=== PATIENT | female | born 1945 | race Caucasian/White ===

== ENCOUNTER → 2017-09-09 16:20 | Outpatient (CLI) | payer MEDICARE, OTHER, SELFPAY ==
[2017-09-09 17:26] LABS: BUN Creatinine Ratio 31.7 (6-22); Blood Urea Nitrogen 19 mg/dL (7-17); Calcium 9.6 mg/dL (8.4-10.2); Carbon Dioxide 24 mmol/L (22-32); Chloride 104 mmol/L (98-107); Estimated Glomerular Filt Rate > 60.0 mL/min (>60); Glucose 95 mg/dL (80-110); HEMOLYSIS < 15 (0-50); Sodium 141 mmol/L (137-145)
== END ==
PROVIDERS: PCP Physician Assistant; Visit Provider Physician Assistant
DX: I10 Essential (primary) hypertension (principal)
CPT/HCPCS: 36415; 80048

== ENCOUNTER → 2017-09-14 14:37 | Outpatient (CLI) | payer MEDICARE, OTHER, SELFPAY ==
[2017-09-14 15:42] LABS: Erythrocyte Sedimentation Rate 8 MM/HR (0-20)
[2017-09-16 12:41] LABS: CCP Antibody (IgG) < 16 Units (< 20)
== END ==
PROVIDERS: PCP Physician Assistant; Visit Provider Physician Assistant
DX: M25.50 Pain in unspecified joint (principal); M25.40 Effusion, unspecified joint
CPT/HCPCS: 36415; 83516; 85651

== ENCOUNTER → 2017-12-07 09:30 | Outpatient (CLI) | payer MEDICARE, OTHER, SELFPAY ==
--- NOTE | 2017-12-07 09:45 | DI.MG.S_ITS ---
BILATERAL DIGITAL SCREENING MAMMOGRAM 3D/2D WITH CAD: 12/07/2017 CLINICAL: Routine screening. Family history of breast cancer. Comparison is made to exams dated: 12/01/2016 mammogram, 11/29/2015 mammogram, and 11/27/2014 mammogram - [facility]. The tissue of both breasts is heterogeneously dense. This may lower the sensitivity of mammography. Current study was also evaluated with a Computer Aided Detection (CAD) system. No significant masses, calcifications, or other findings are seen in either breast. There has been no significant interval change. IMPRESSION: NEGATIVE There is no mammographic evidence of malignancy. A 1 year screening mammogram is recommended.(12/08/2018) This exam was interpreted at Station ID: [id number]. NOTE: For mammograms, a report in lay terms will be sent to the patient. Approximately 15% of breast malignancies will not be visualized mammographically. In the management of a palpable breast mass, a negative mammogram must not discourage biopsy of a clinically suspicious lesion. Electronically Signed By: Mason zavaleta/sophia:12/07/2017 15:51:23 letter sent: Normal Exam ACR BI-RADS Category 1: Negative 3341F
== END ==
PROVIDERS: PCP Physician Assistant; Visit Provider Physician Assistant
DX: Z12.31 Encounter for screening mammogram for malignant neoplasm of breast (principal)
CPT/HCPCS: 77063; 77067

== ENCOUNTER → 2018-03-09 09:38 | Outpatient (CLI) | payer MEDICARE, OTHER, SELFPAY ==
--- NOTE | 2018-03-09 09:43 | DI.RAD.S_ITS ---
PROCEDURE: XR CERVICAL SPINE 2V OR 3V INDICATIONS: Right sided neck pain; suspect osteoarthritis TECHNIQUE: 3 view(s) of the cervical spine were acquired. COMPARISON: None. FINDINGS: Bones: No fractures or dislocations to the T1 level. The lateral masses of C1 appear intact on the odontoid view. No suspicious bony lesions. Soft tissues: No prevertebral soft tissue swelling. IMPRESSION: Moderate degenerative disc disease over the middle and lower thirds of the cervical spine best seen at C5-6, no trauma found, and no subluxation associated. Dictated by: Miguel Guardado M.D. on 03/09/2018 at 10:35 Approved by: Miguel Guardado M.D. on 03/09/2018 at 10:36
== END ==
PROVIDERS: PCP Physician Assistant; Visit Provider Physician Assistant
DX: M50.322 Other cervical disc degeneration at C5-C6 level (principal)
CPT/HCPCS: 72040

== ENCOUNTER → 2018-04-02 08:31 | Outpatient (CLI) | payer MEDICARE, OTHER, SELFPAY ==
[2018-04-02 08:55] LABS: Cholesterol 167 mg/dL (140-199); HDL Cholesterol 47 mg/dL (40-60); LDL Cholesterol Calculated 100 mg/dL (<100); Triglycerides 99 mg/dL (35-150)
== END ==
PROVIDERS: PCP Physician Assistant; Visit Provider Physician Assistant
DX: E78.2 Mixed hyperlipidemia (principal)
CPT/HCPCS: 36415; 80061

== ENCOUNTER → 2018-08-04 10:11 | Outpatient (CLI) | payer MEDICARE, OTHER, SELFPAY ==
[2018-08-04 11:52] LABS: Thyroid Stimulating Hormone 1.11 uIU/mL (0.47-4.68)
== END ==
PROVIDERS: PCP Physician Assistant; Visit Provider Physician Assistant
DX: E03.9 Hypothyroidism, unspecified (principal)
CPT/HCPCS: 36415; 84443

== ENCOUNTER → 2018-12-14 11:22 | Outpatient (CLI) | payer MEDICARE, OTHER, SELFPAY ==
--- NOTE | 2018-12-14 | DI.MG.S_ITS ---
BILATERAL DIGITAL SCREENING MAMMOGRAM 3D/2D WITH CAD: 12/14/2018 CLINICAL: Routine screening. Family history of breast cancer. Comparison is made to exams dated: 12/07/2017 mammogram, 12/01/2016 mammogram, and 11/29/2015 mammogram - [facility]. The tissue of both breasts is heterogeneously dense. This may lower the sensitivity of mammography. Current study was also evaluated with a Computer Aided Detection (CAD) system. No significant masses, calcifications, or other findings are seen in either breast. There has been no significant interval change. IMPRESSION: NEGATIVE There is no mammographic evidence of malignancy. A 1 year screening mammogram is recommended. This exam was interpreted at Station ID: [id number]. NOTE: For mammograms, a report in lay terms will be sent to the patient. Approximately 15% of breast malignancies will not be visualized mammographically. In the management of a palpable breast mass, a negative mammogram must not discourage biopsy of a clinically suspicious lesion. Electronically Signed By: Mason zavaleta/sophia:12/14/2018 11:56:54 letter sent: Normal Exam ACR BI-RADS Category 1: Negative 3341F
== END ==
PROVIDERS: PCP Physician Assistant; Visit Provider Physician Assistant
DX: Z12.31 Encounter for screening mammogram for malignant neoplasm of breast (principal); Z80.3 Family history of malignant neoplasm of breast
CPT/HCPCS: 77063; 77067

== ENCOUNTER → 2019-03-02 07:03 | Outpatient (CLI) | payer MEDICARE, OTHER, SELFPAY ==
[2019-03-02 08:33] LABS: Alanine Aminotransferase 23 IU/L (<35); Albumin 4.4 g/dL (3.5-5.0); Albumin Globulin Ratio 1.6 (1.0-2.8); Alkaline Phosphatase 66 U/L (38-126); Aspartate Aminotransferase 25 IU/L (14-36); BUN Creatinine Ratio 18.6 (6-22); Bilirubin Total 0.5 mg/dL (0.2-1.3); Blood Urea Nitrogen 13 mg/dL (7-17); Calcium 9.4 mg/dL (8.4-10.2); Carbon Dioxide 29 mmol/L (22-32); Chloride 104 mmol/L (98-107); Cholesterol 174 mg/dL (140-199); Estimated Glomerular Filt Rate > 60.0 mL/min (>60); Globulin 2.7 g/dL (1.7-4.1); Glucose 98 mg/dL (80-110); HDL Cholesterol 40 mg/dL (40-60); HEMOLYSIS < 15 (0-50); LDL Cholesterol Calculated 103 mg/dL (<100); Potassium 4.5 mmol/L (3.4-5.1); Sodium 140 mmol/L (137-145); Total Protein 7.1 g/dL (6.3-8.2); Triglycerides 156 mg/dL (35-150)
[2019-03-02 09:03] LABS: Thyroid Stimulating Hormone 4.75 uIU/mL (0.47-4.68)
[2019-03-02 09:45] LABS: Microalbumi Creatinin Ratio Ur 4.9 ug/mg CR (<30); Microalbumin Urine Random 0.7 mg/dL (0-1.6)
== END ==
PROVIDERS: PCP Physician Assistant; Visit Provider Physician Assistant
DX: E03.9 Hypothyroidism, unspecified (principal); E78.5 Hyperlipidemia, unspecified; I10 Essential (primary) hypertension
CPT/HCPCS: 36415; 80053; 80061; 82043; 82570; 84443

== ENCOUNTER → 2019-04-25 07:42 | Outpatient (CLI) | payer MEDICARE, OTHER, SELFPAY ==
[2019-04-25 09:04] LABS: Cholesterol 186 mg/dL (140-199); HDL Cholesterol 45 mg/dL (40-60); LDL Cholesterol Calculated 112 mg/dL (<100); Triglycerides 147 mg/dL (35-150)
[2019-04-25 09:36] LABS: Thyroid Stimulating Hormone 0.39 uIU/mL (0.47-4.68)
== END ==
PROVIDERS: PCP Nurse Practitioner Family; Referring Provider Physician Assistant; Visit Provider Physician Assistant
DX: Z51.81 Encounter for therapeutic drug level monitoring (principal); E03.9 Hypothyroidism, unspecified; E78.2 Mixed hyperlipidemia
CPT/HCPCS: 36415; 80061; 84443

== ENCOUNTER 2019-05-30 07:59 | Day surgery (SDC) | payer MEDICARE, OTHER, SELFPAY ==
--- NOTE | 2019-05-30 | PATH_ITS ---
[facility] Accession Number: [id number] . 01 Material submitted: . PART A: gastrointestinal site - RANDOM GASTRIC BIOPSIES PART B: esophagus, E-G Junction - GE JUNCTION BIOPSIES . 02 Diagnosis: A. Stomach, Random Biopsies: Antral mucosa with mild chronic gastritis. Negative for Helicobacter by immunohistochemistry. Negative for intestinal metaplasia. Negative for dysplasia and malignancy. . B. Gastroesophageal Junction, Biopsies: Squamocolumnar junctional mucosa with no significant diagnostic abnormality. Negative for intestinal metaplasia by Alcian blue stain. Negative for dysplasia and malignancy. [facility] 06/01/2019 1341 Local . 02 Electronically signed: . Colette Rockwell MD, Pathologist NPI- [id number] . 01 Gross description: . Part A: RANDOM GASTRIC BIOPSIES: Received in formalin are 2 fragment(s) of torres, soft tissue measuring 0.2 x 0.2 x 0.2 cm to 0.3 x 0.2 x 0.2 cm submitted entirely in 1 cassette(s) Part B: GE JUNCTION BIOPSIES: Received in formalin is 1 fragment(s) of torres, soft tissue measuring 0.1 x 0.1 x 0.1 cm submitted entirely in 1 cassette(s) /[facility] 05/30/2019 2013 Local . 02 Microscopic: . A. An immunohistochemical stain was performed to evaluate for Helicobacter organisms and is negative. The control stain showed appropriate reactivity. . B. An AB/PAS stain was performed to evaluate for intestinal metaplasia and fungal organisms, respectively, and are both negative. The control stain showed appropriate reactivity. . * This test was developed and its performance characteristics determined by [employer] It has not been cleared or approved by the U.S. Food and Drug Administration. The FDA has determined that such clearance or approval is not necessary. This test is used for clinical purposes. It should not be regarded as investigational or for research. . . . 02 Pathologist provided ICD-10: K21.0 . 02 CPT . 950106, 638290, K81130, 916761 Performed at: 01 [facility] [address] [id number] MD Mason Stephen MD Phone: [phone] Performed at: 02 [facility] [address] [place] [id number] MD Colette Rockwell MD Phone: [phone]
[2019-05-30 08:52] VITALS: BP 129/71; PULSE 77; RESP 16; TEMP 36.7; O2SAT 99; BMI 26.1
--- NOTE | 2019-05-30 09:02 | PM.PREOP ---
Pre-operative Note Interval Note History & Physical reviewed/Exam performed by Physician: Yes Changes to H&P: No ASA Class (for procedural sedation): II
[2019-05-30] MEDS: LACTATED RINGERS 1,000 ML 200 ML IV (09:08)
[2019-05-30] MEDS: LIDOCAINE 4% SOLN 50 ML 20 ML TOP (10:06)
[2019-05-30] MEDS: fentaNYL 250 MCG/5 ML INJ IV (10:11)
[2019-05-30] MEDS: MIDAZOLAM 5 MG/5 ML VIAL IV (10:11)
--- NOTE | 2019-05-30 10:21 | PM.OP.ENDO ---
Operative Date/Time/Diagnoses Date of procedure: 05/30/19 Time of procedure: 10:21 Pre-op diagnosis: dysphagia Post-op diagnosis: other (gastritis) Procedure & Clinicians Study performed: Esophagoduodenoscopy Same procedure as scheduled: Yes Indications: New onset dysphagia Surgeon: Librado Wyatt Procedure Notes SCOAP/Timeout: Performed Procedure in detail: Patient placed in left lateral decubitus position. Time out was performed. Procedural sedation was administered with Versed and Fentanyl. A bite block was placed. the scope was inserted into the mouth and advanced through the esophagus and into the stomach. The pylorus was intubated and the duodenum was normal. The scope was retroflexed within the stomach and there was a moderate size hiatal hernia. Stomach was notable for gastritis particularly of the antrum. Several random biopsies of the cyst distal stomach were taken with forceps. Hemostasis was observed. The scope was withdrawn into the esophagus the Z line was seen at 32 cm from the incisions. There was no vidales's esophagitis or masses or strictures. 4 random biopsies of the GE junction were taken with forceps. Stomach was desufflated and scope removed. Patient tolerated procedure well. Sedation minutes: 10 Findings: gastritis and hiatal hernia Specimen(s): other (1. Random gastric biopsy 2. GE junction) Complications: none Impression: Gastritis, hiatal hernia Post-procedure Recommendations: Start medication(s) (Omeprazole) Disposition: same day surgery
[2019-05-30 10:28] VITALS: BP 127/70; PULSE 67; RESP 19; TEMP 36.2; O2SAT 95
[2019-05-30 10:34] VITALS: BP 114/63; PULSE 66; RESP 15; O2SAT 96
[2019-05-30 10:39] VITALS: BP 112/57; PULSE 64; RESP 14; O2SAT 92
[2019-05-30 10:43] VITALS: BP 123/66; PULSE 70; RESP 16; O2SAT 92
[2019-05-30 11:09] VITALS: BP 129/81; PULSE 68; RESP 16; TEMP 36.3; O2SAT 98
== END 2019-05-30 11:10 | disposition home or self-care (01) ==
PROVIDERS: PCP Nurse Practitioner Family; Referring Provider Surgery; Visit Provider Surgery
PROC: 0DJ08ZZ Inspection of Upper Intestinal Tract, Via Natural or Artificial Opening Endoscopic (ICD-10-PCS; CPT 43235; principal; 2019-05-30 09:15)
DX: K29.50 Unspecified chronic gastritis without bleeding (principal); R13.10 Dysphagia, unspecified; K21.9 Gastro-esophageal reflux disease without esophagitis; M85.80 Other specified disorders of bone density and structure, unspecified site; K44.9 Diaphragmatic hernia without obstruction or gangrene
CPT/HCPCS: 43239; 99152; J2250; J3010

== ENCOUNTER → 2019-07-08 09:36 | Outpatient (CLI) | payer MEDICARE, OTHER, SELFPAY ==
[2019-07-08 11:16] LABS: Cholesterol 140 mg/dL (140-199); HDL Cholesterol 35 mg/dL (40-60); LDL Cholesterol Calculated 89 mg/dL (<100); Triglycerides 82 mg/dL (35-150)
[2019-07-08 11:45] LABS: Thyroid Stimulating Hormone 0.04 uIU/mL (0.47-4.68)
== END ==
PROVIDERS: PCP Nurse Practitioner Family; Referring Provider Nurse Practitioner Family; Visit Provider Nurse Practitioner Family
DX: E03.9 Hypothyroidism, unspecified (principal); E78.2 Mixed hyperlipidemia
CPT/HCPCS: 36415; 80061; 84443

== ENCOUNTER → 2019-09-05 11:40 | Outpatient (CLI) | payer MEDICARE, OTHER, SELFPAY ==
[2019-09-05 13:11] LABS: Free T4, Direct Thyroxine 1.29 ng/dL (0.78-2.19)
[2019-09-05 13:25] LABS: Thyroid Stimulating Hormone 0.157 uIU/mL (0.47-4.68)
== END ==
PROVIDERS: PCP Nurse Practitioner Family; Referring Provider Nurse Practitioner Family; Visit Provider Nurse Practitioner Family
DX: E03.9 Hypothyroidism, unspecified (principal)
CPT/HCPCS: 36415; 84439; 84443

== ENCOUNTER → 2019-10-16 08:09 | Outpatient (CLI) | payer MEDICARE, OTHER, SELFPAY ==
[2019-10-16 09:38] LABS: Thyroid Stimulating Hormone 1.01 uIU/mL (0.47-4.68)
== END ==
PROVIDERS: PCP Nurse Practitioner Family; Referring Provider Nurse Practitioner Family; Visit Provider Nurse Practitioner Family
DX: E03.9 Hypothyroidism, unspecified (principal)
CPT/HCPCS: 36415; 84443

== ENCOUNTER → 2019-12-18 10:01 | Outpatient (CLI) | payer MEDICARE, OTHER, SELFPAY ==
--- NOTE | 2019-12-18 | DI.MG.S_ITS ---
BILATERAL DIGITAL SCREENING MAMMOGRAM 3D/2D WITH CAD: 12/18/2019 CLINICAL: Routine screening. Family history of breast cancer. Comparison is made to exams dated: 12/14/2018 mammogram, 12/07/2017 mammogram, and 12/01/2016 mammogram - [facility]. The tissue of both breasts is heterogeneously dense. This may lower the sensitivity of mammography. Current study was also evaluated with a Computer Aided Detection (CAD) system. No significant masses, calcifications, or other findings are seen in either breast. There has been no significant interval change. IMPRESSION: NEGATIVE There is no mammographic evidence of malignancy. A 1 year screening mammogram is recommended. This exam was interpreted at Station ID: [id number]. NOTE: For mammograms, a report in lay terms will be sent to the patient. Approximately 15% of breast malignancies will not be visualized mammographically. In the management of a palpable breast mass, a negative mammogram must not discourage biopsy of a clinically suspicious lesion. Electronically Signed By: Meliton Roa M.D., jr/sophia:12/18/2019 10:47:03 letter sent: Normal Exam ACR BI-RADS Category 1: Negative 3341F
== END ==
PROVIDERS: PCP Nurse Practitioner Family; Referring Provider Nurse Practitioner Family; Visit Provider Nurse Practitioner Family
DX: Z12.31 Encounter for screening mammogram for malignant neoplasm of breast (principal); Z80.3 Family history of malignant neoplasm of breast; M85.88 Other specified disorders of bone density and structure, other site; Z78.0 Asymptomatic menopausal state; E07.9 Disorder of thyroid, unspecified
CPT/HCPCS: 77063; 77067; 77080

== ENCOUNTER → 2019-12-29 08:41 | Outpatient (CLI) | payer MEDICARE, OTHER, SELFPAY ==
[2019-12-29 10:11] LABS: Hematocrit 39.3 % (36-46); Hemoglobin 13.3 g/dL (12.0-16.0); Mean Corpuscular HGB Conc 33.9 % (30-36); Mean Corpuscular Hemoglobin 30.6 PG (26-34); Mean Corpuscular Volume 90.1 fL (80-100); Platelet Count 221 X10^3/uL (150-400); Red Blood Cell Count 4.36 X10^6/uL (4.0-5.2); Red Cell Distribution Width 13.3 % (11.6-14.8); White Blood Cell Count 4.2 X10^3/uL (4.5-11.0)
[2019-12-29 10:46] LABS: Alanine Aminotransferase 21 IU/L (<35); Albumin 4.3 g/dL (3.5-5.0); Albumin Globulin Ratio 1.4 (1.0-2.8); Alkaline Phosphatase 81 U/L (38-126); Aspartate Aminotransferase 22 IU/L (14-36); BUN Creatinine Ratio 27.3 (6-22); Bilirubin Total 0.5 mg/dL (0.2-1.3); Blood Urea Nitrogen 18 mg/dL (7-17); Calcium 9.3 mg/dL (8.4-10.2); Carbon Dioxide 27 mmol/L (22-32); Chloride 103 mmol/L (98-107); Cholesterol 154 mg/dL (140-199); Estimated Glomerular Filt Rate > 60.0 mL/min (>60); Glucose 96 mg/dL (80-110); HDL Cholesterol 44 mg/dL (40-60); HEMOLYSIS < 15 (0-50); LDL Cholesterol Calculated 78 mg/dL (<100); Potassium 4.5 mmol/L (3.4-5.1); Sodium 137 mmol/L (137-145); Total Protein 7.3 g/dL (6.3-8.2); Triglycerides 162 mg/dL (35-150)
[2019-12-29 11:14] LABS: Thyroid Stimulating Hormone 2.33 uIU/mL (0.47-4.68)
[2019-12-29 11:55] LABS: Creatinine Urine Random 150.3 mg/dL
[2019-12-29 12:01] LABS: Microalbumin Urine Random < 0.6 mg/dL (0-1.6)
== END ==
PROVIDERS: PCP Nurse Practitioner Family; Referring Provider Nurse Practitioner Family; Visit Provider Nurse Practitioner Family
DX: E03.9 Hypothyroidism, unspecified (principal); I10 Essential (primary) hypertension
CPT/HCPCS: 36415; 80053; 80061; 82043; 82570; 84443; 85027

== ENCOUNTER → 2020-01-18 15:28 | Outpatient (CLI) | payer MEDICARE, OTHER, SELFPAY | PROVIDERS: PCP Nurse Practitioner Family; Visit Provider Nurse Practitioner Family | DX: R19.5 Other fecal abnormalities (principal) | CPT/HCPCS: 87045; 87177; 87899 ==

== ENCOUNTER 2020-03-12 09:00 | Outpatient (RCR) | payer MEDICARE, OTHER, SELFPAY ==
--- NOTE | 2020-02-27 14:33 | PT.OIE ---
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) Cellulitis of left finger Dysphagia (2018) GERD (gastroesophageal reflux disease) (2018) Ingrown toenail of right foot Onychomycosis Osteopenia (03/2013) Rash and nonspecific skin eruption Visit Care Team Role Provider Type MONAE Castillo Attending Provider Advanced Sports Medicine Physician Primary Care Provider Referring Provider Specialty: Family Practice Address: [address] [place] [address] Email: [email or web address] Physical Therapy Initial Evaluation PT-OP-A Visit Information Start: 02/27/20 08:12 Freq: Status: Active Protocol: Document 02/27/20 08:15 AMB (Rec: 02/28/20 13:25 AMB [email or web address]) Out-Patient Physical Therapy Visit Information Visit Information Visit Type Initial Evaluation Visit Start Time 08:15 Visit Stop Time 09:00 Total Visit Minutes 45 Visit Number 1 PT-OP-B Current Condition Start: 02/27/20 08:12 Freq: Status: Active Protocol: Document 02/27/20 08:15 AMB (Rec: 02/27/20 08:49 AMB [id number]) Current Condition History of Current Condition Onset Date 2 or 3 years Current Complaints Urgency History of Current Condition Lauren has noted progressivley worsening urge incontinence, especially with hiking. Has limited herself to 2 miles secondary to the leaking. Recently treatedfor ringworm seemed to help with fungus and that seemed to help with incontinence. Does have one instance nocturia, but not bothered by it. Denies stress incontinence. Did have a few episodes last week, but not as bad as a few months ago. Treatment Goals Patient/Caregiver Goals Return to hiking without urgency, leaks Prior Functional Status Baseline Function- ADL's Independent Baseline Function- Mobility Independent Personal Factors Other Personal Factors That May Effect Osteopenia, depression, Therapy/Recovery hypothyroid PT-OP-C Subjective Start: 02/27/20 08:12 Freq: Status: Active Protocol: Document 02/27/20 08:15 AMB (Rec: 12/23/20 13:25 AMB [email or web address]) Patient Questionnaires Pelvic Pain and Urgency/Frequency Patient Symptom Scale Pelvic Pain Score 8 PT-OP-I Pelvic Floor Start: 02/27/20 08:12 Freq: Status: Active Protocol: Document 02/27/20 08:15 AMB (Rec: 02/27/20 15:53 AMB [email or web address]) Pelvic Floor Assessment Urine Pelvic Floor Surgery No Urinary Symptoms Urge Sensation Leakage Size Large Leakage Cause Urge Other Leakage Causes hiking (not having access to bathroom, then seeing toilet, or portapottie) Leaks Per Day 3/week Voiding Frequency every 2 hours Nocturia 1 Perineal Descent Resting Absent Bearing Absent Contraction Ability Voluntary Contraction Weak Voluntary Relaxation Moderate Manual Muscle Testing Left 3 Manual Muscle Testing Right 3 Manual Muscle Testing Anterior 2 Manual Muscle Testing Posterior 3 Muscle Endurance (Seconds) 5 Number of Quick Contractions In 10 4 Seconds PT-OP-T Assessment and Plan Start: 02/27/20 08:12 Freq: Status: Active Protocol: Document 02/27/20 08:15 AMB (Rec: 02/28/20 13:30 AMB [email or web address]) Physical Therapy Assessment Rehab Potential Rehabilitation Potential Good Evaluation Complexity Number of Personal Factors/Comorbidities 1-2 Number of Body Systems Impaired 1-2 Clinical Presentation at Evaluation Stable Impairments Impairments Functional Activities,Strength Goals Two Impairment Hiking Short Term Goal (STG) Lauren will hike for 2.5 miles without leaking. STG Duration 4 weeks One Impairment Continence Short Term Goal (STG) Lauren will be independent with a pelvic floor strengthening HEP. STG Duration 4 weeks Mcc Goal (LTG) Lauren will walk past a toilet without urgency. LTG Duration 8 weeks Assessment Summary Assessment Lauren attends physical therapy with urge incontinence particularly triggered by hiking when she does not have access to a toilet. Her pelvic floor strength was mildly impaired but she will mostly benefit from urge suppression techniques. Physical Therapy Plan Frequency and Duration Frequency of Treatment 1x/Week Duration of Treatment 8 weeks Plan of Care Start Date 02/27/20 Plan of Care End Date 04/23/20 Therapeutic Interventions Therapeutic Interventions Home Exercise Program,Manual Therapy,Neuromuscular Re- education,Self-Care/Home Management,Therapeutic Activities,Therapeutic Exercises Modalities Biofeedback,Electric Stimulation Next Visit Focus/Plan Next Note Type Treatment Note Next Visit Plan Review urge suppression, can try sEMG or NMES
--- NOTE | 2020-02-27 14:33 | PT.OPPOC ---
Physical, Occupational & Speech Therapy At [facility] Current Diagnoses Urge incontinence (02/27/20) Visit Care Team Role Provider Type MONAE Castillo Attending Provider Advanced T[employer] Wrapper Primary Care Provider Referring Provider Specialty: Family Practice Address: [address] [place] [address], [id number] Email: [email or web address] Plan Of Care PT-OP-T Assessment and Plan Start: 02/27/20 08:12 Freq: Status: Active Protocol: Document 02/27/20 08:15 AMB (Rec: 02/28/20 13:30 AMB [email or web address]) Physical Therapy Assessment Rehab Potential Rehabilitation Potential Good Evaluation Complexity Number of Personal Factors/Comorbidities 1-2 Number of Body Systems Impaired 1-2 Clinical Presentation at Evaluation Stable Impairments Impairments Functional Activities,Strength Goals Two Impairment Hiking Short Term Goal (STG) Lauren will hike for 2.5 miles without leaking. STG Duration 4 weeks One Impairment Continence Short Term Goal (STG) Lauren will be independent with a pelvic floor strengthening HEP. STG Duration 4 weeks Fpc Goal (LTG) Lauren will walk past a toilet without urgency. LTG Duration 8 weeks Assessment Summary Assessment Lauren attends physical therapy with urge incontinence particularly triggered by hiking when she does not have access to a toilet. Her pelvic floor strength was mildly impaired but she will mostly benefit from urge suppression techniques. Physical Therapy Plan Frequency and Duration Frequency of Treatment 1x/Week Duration of Treatment 8 weeks Plan of Care Start Date 02/27/20 Plan of Care End Date 04/23/20 Therapeutic Interventions Therapeutic Interventions Home Exercise Program,Manual Therapy,Neuromuscular Re- education,Self-Care/Home Management,Therapeutic Activities,Therapeutic Exercises Modalities Biofeedback,Electric Stimulation Next Visit Focus/Plan Next Note Type Treatment Note Next Visit Plan Review urge suppression, can try sEMG or NMES Plan of Care Dates Plan of Care Start Date 02/27/20 Plan of Care End Date 04/23/20 Electronically Signed by: Veronica Cisneros, PT 02/28/20 [id number] Please Sign and Return: I have reviewed this Plan of Care and certify that the skilled therapy services above are required to meet the patient?s needs. Physician Signature Date Printed Name and Credentials Clinical Instructor Signature Printed Name and Credentials
--- NOTE | 2020-03-12 10:08 | PT.OTN ---
Current Diagnoses Urge incontinence (03/12/20) Physical Therapy Treatment Note PT-OP-A Visit Information Start: 02/27/20 08:12 Freq: Status: Active Protocol: Document 03/12/20 09:00 AMB (Rec: 03/12/20 09:43 AMB [id number]) Out-Patient Physical Therapy Visit Information Visit Information Visit Type Treatment Note Visit Start Time 09:00 Visit Stop Time 09:45 Total Visit Minutes 45 Visit Number 2 PT-OP-B Current Condition Start: 02/27/20 08:12 Freq: Status: Active Protocol: Document 02/27/20 08:15 AMB (Rec: 02/27/20 08:49 AMB [id number]) Current Condition History of Current Condition Onset Date 2 or 3 years Current Complaints Urgency History of Current Condition Lauren has noted progressivley worsening urge incontinence, especially with hiking. Has limited herself to 2 miles secondary to the leaking. Recently treatedfor ringworm seemed to help with fungus and that seemed to help with incontinence. Does have one instance nocturia, but not bothered by it. Denies stress incontinence. Did have a few episodes last week, but not as bad as a few months ago. Treatment Goals Patient/Caregiver Goals Return to hiking without urgency, leaks Prior Functional Status Baseline Function- ADL's Independent Baseline Function- Mobility Independent Personal Factors Other Personal Factors That May Effect Osteopenia, depression, Therapy/Recovery hypothyroid PT-OP-C Subjective Start: 02/27/20 08:12 Freq: Status: Active Protocol: Document 03/12/20 09:00 AMB (Rec: 03/12/20 09:43 AMB [id number]) OP-PT Subjective Patient Comments Patient Comments Has been able to go 1.5 hours, working on relaxation, feels like there's forward progress PT-OP-I Pelvic Floor Start: 02/27/20 08:12 Freq: Status: Active Protocol: Document 02/27/20 08:15 AMB (Rec: 02/27/20 15:53 AMB [email or web address]) Pelvic Floor Assessment Urine Pelvic Floor Surgery No Urinary Symptoms Urge Sensation Leakage Size Large Leakage Cause Urge Other Leakage Causes hiking (not having access to bathroom, then seeing toilet, or portapottie) Leaks Per Day 3/week Voiding Frequency every 2 hours Nocturia 1 Perineal Descent Resting Absent Bearing Absent Contraction Ability Voluntary Contraction Weak Voluntary Relaxation Moderate Manual Muscle Testing Left 3 Manual Muscle Testing Right 3 Manual Muscle Testing Anterior 2 Manual Muscle Testing Posterior 3 Muscle Endurance (Seconds) 5 Number of Quick Contractions In 10 4 Seconds PT-OP-Q Treatments Start: 02/27/20 08:12 Freq: Status: Active Protocol: Document 03/12/20 09:54 AMB (Rec: 03/12/20 10:05 AMB [id number]) Therapeutic Exercises Sitting Exercises 1 Sitting Exercise Name roll in roll out Comments wiht #2 band Standing Exercises 1 Standing Exercise Name partial squat with pelvic floor contract Comments relax pelvic floor first Other Exercises 1 Comments review urge reduction PT-OP-T Assessment and Plan Start: 02/27/20 08:12 Freq: Status: Active Protocol: Document 03/12/20 09:00 AMB (Rec: 03/12/20 09:43 AMB [id number]) Physical Therapy Assessment Assessment Summary Assessment Lauren has been working hard on urge reduction techniques. She can go 1.5 hours without urge, she has not had any leaks. She has not been on a 2 hour hike yet, but that is also due to the poor weather. She is very much working on urge reduction, but hasn't felt like the kegels have been super helpful. Has noticed her bladder isn't especially full when she voids. Physical Therapy Plan Next Visit Focus/Plan Next Note Type Treatment Note Next Visit Plan Continue urge suppression training, work on lengthening time between voids.
--- NOTE | 2020-04-10 10:15 | PT.OPDS ---
Current Diagnoses Urge incontinence (03/12/20) Visit Care Team Role Provider Type MONAE Castillo Attending Provider Advanced Candy Spreader Primary Care Provider Referring Provider Specialty: Family Practice Address: [address] [place] [address], [id number] Email: [email or web address] Visit Number Visit Number 2 Discharge Summary PT-OP-B Current Condition Start: 02/27/20 08:12 Freq: Status: Active Protocol: Document 02/27/20 08:15 AMB (Rec: 02/27/20 08:49 AMB [id number]) Current Condition History of Current Condition Onset Date 2 or 3 years Current Complaints Urgency History of Current Condition Lauren has noted progressivley worsening urge incontinence, especially with hiking. Has limited herself to 2 miles secondary to the leaking. Recently treatedfor ringworm seemed to help with fungus and that seemed to help with incontinence. Does have one instance nocturia, but not bothered by it. Denies stress incontinence. Did have a few episodes last week, but not as bad as a few months ago. Treatment Goals Patient/Caregiver Goals Return to hiking without urgency, leaks Prior Functional Status Baseline Function- ADL's Independent Baseline Function- Mobility Independent Personal Factors Other Personal Factors That May Effect Osteopenia, depression, Therapy/Recovery hypothyroid PT-OP-C Subjective Start: 02/27/20 08:12 Freq: Status: Active Protocol: Document 03/12/20 09:00 AMB (Rec: 03/12/20 09:43 AMB [id number]) OP-PT Subjective Patient Comments Patient Comments Has been able to go 1.5 hours, working on relaxation, feels like there's forward progress PT-OP-I Pelvic Floor Start: 02/27/20 08:12 Freq: Status: Active Protocol: Document 02/27/20 08:15 AMB (Rec: 02/27/20 15:53 AMB [email or web address]) Pelvic Floor Assessment Urine Pelvic Floor Surgery No Urinary Symptoms Urge Sensation Leakage Size Large Leakage Cause Urge Other Leakage Causes hiking (not having access to bathroom, then seeing toilet, or portapottie) Leaks Per Day 3/week Voiding Frequency every 2 hours Nocturia 1 Perineal Descent Resting Absent Bearing Absent Contraction Ability Voluntary Contraction Weak Voluntary Relaxation Moderate Manual Muscle Testing Left 3 Manual Muscle Testing Right 3 Manual Muscle Testing Anterior 2 Manual Muscle Testing Posterior 3 Muscle Endurance (Seconds) 5 Number of Quick Contractions In 10 4 Seconds PT-OP-T Assessment and Plan Start: 02/27/20 08:12 Freq: Status: Active Protocol: Document 04/10/20 10:14 AMB (Rec: 04/10/20 10:15 AMB [email or web address]) Physical Therapy Plan Discharge Physical Therapy Discharge Reasons Patient Request Discharge Comments Pt attended 2 appointments and canceled the rest, asking for discharge, she did not expand on why. At her last visit she could control her urge for about 1.5 hours.
== END 2020-04-11 13:37 ==
LOC: PHYS 09:00
PROVIDERS: PCP Nurse Practitioner Family; Referring Provider Nurse Practitioner Family; Visit Provider Nurse Practitioner Family
DX: N39.41 Urge incontinence (principal)
CPT/HCPCS: 97110; 97161

== ENCOUNTER → 2020-04-12 12:59 | Outpatient (CLI) | payer MEDICARE, OTHER, SELFPAY ==
[2020-04-12] MEDS: COVID-19 VACC #1, MRNA(MOD) 100 MCG/0.5 ML VIAL IM (13:07)
== END ==
PROVIDERS: PCP Nurse Practitioner Family; Visit Provider Internal Medicine
DX: Z23 Encounter for immunization (principal)
CPT/HCPCS: 0011A; 91301

== ENCOUNTER → 2020-05-09 14:58 | Outpatient (CLI) | payer MEDICARE, OTHER, SELFPAY ==
[2020-05-09] MEDS: COVID-19 VACC #2, MRNA(MOD) 100 MCG/0.5 ML VIAL IM (15:09)
== END ==
PROVIDERS: PCP Nurse Practitioner Family; Visit Provider Internal Medicine
DX: Z23 Encounter for immunization (principal)
CPT/HCPCS: 0012A; 91301

== ENCOUNTER → 2020-07-09 08:37 | Outpatient (CLI) | payer MEDICARE, OTHER, SELFPAY ==
[2020-07-09 09:44] LABS: Hematocrit 42.1 % (36-46); Hemoglobin 14.2 g/dL (12.0-16.0); Mean Corpuscular HGB Conc 33.8 % (30-36); Mean Corpuscular Hemoglobin 30.6 PG (26-34); Mean Corpuscular Volume 90.5 fL (80-100); Platelet Count 258 X10^3/uL (150-400); Red Blood Cell Count 4.66 X10^6/uL (4.0-5.2); White Blood Cell Count 4.7 X10^3/uL (4.5-11.0)
[2020-07-09 10:48] LABS: HEMOLYSIS < 15 (0-50); Potassium 4.5 mmol/L (3.4-5.1)
[2020-07-09 10:49] LABS: Alanine Aminotransferase 24 IU/L (<35); Albumin 4.3 g/dL (3.5-5.0); Albumin Globulin Ratio 1.4 (1.0-2.8); Alkaline Phosphatase 63 U/L (38-126); Aspartate Aminotransferase 31 IU/L (14-36); BUN Creatinine Ratio 25.4 (6-22); Bilirubin Total 0.4 mg/dL (0.2-1.3); Blood Urea Nitrogen 16 mg/dL (7-17); Calcium 9.9 mg/dL (8.4-10.2); Carbon Dioxide 27 mmol/L (22-32); Chloride 104 mmol/L (98-107); Cholesterol 161 mg/dL (140-199); Estimated Glomerular Filt Rate > 60.0 mL/min (>60); Glucose 107 mg/dL (80-110); HDL Cholesterol 48 mg/dL (40-60); LDL Cholesterol Calculated 98 mg/dL (<100); Sodium 139 mmol/L (137-145); Total Protein 7.3 g/dL (6.3-8.2); Triglycerides 73 mg/dL (35-150)
[2020-07-09 11:13] LABS: Thyroid Stimulating Hormone 5.31 uIU/mL (0.47-4.68)
== END ==
PROVIDERS: PCP Nurse Practitioner Family; Referring Provider Nurse Practitioner Family; Visit Provider Nurse Practitioner Family
DX: E03.9 Hypothyroidism, unspecified (principal); I10 Essential (primary) hypertension; E78.2 Mixed hyperlipidemia
CPT/HCPCS: 36415; 80053; 80061; 84443; 85027

== ENCOUNTER → 2020-09-17 11:44 | Outpatient (CLI) | payer MEDICARE, OTHER, SELFPAY ==
[2020-09-17 13:47] LABS: Thyroid Stimulating Hormone 1.13 uIU/mL (0.47-4.68)
== END ==
PROVIDERS: PCP Nurse Practitioner Family; Referring Provider Nurse Practitioner Family; Visit Provider Nurse Practitioner Family
DX: E03.9 Hypothyroidism, unspecified (principal)
CPT/HCPCS: 36415; 84443

== ENCOUNTER → 2020-12-25 12:40 | Outpatient (CLI) | payer MEDICARE, OTHER, SELFPAY ==
--- NOTE | 2020-12-25 | DI.MG.S_ITS ---
BILATERAL DIGITAL SCREENING MAMMOGRAM 3D/2D WITH CAD: 12/25/2020 CLINICAL: Routine screening. Family history of breast cancer. Comparison is made to exams dated: 12/18/2019 mammogram, 12/14/2018 mammogram, and 12/07/2017 mammogram - [facility]. The tissue of both breasts is heterogeneously dense. This may lower the sensitivity of mammography. Current study was also evaluated with a Computer Aided Detection (CAD) system. There are benign calcifications in the right breast. No significant masses, calcifications, or other findings are seen in either breast. There has been no significant interval change. IMPRESSION: BENIGN There is no mammographic evidence of malignancy. A 1 year screening mammogram is recommended. This exam was interpreted at Station ID: [id number]. NOTE: For mammograms, a report in lay terms will be sent to the patient. Approximately 15% of breast malignancies will not be visualized mammographically. In the management of a palpable breast mass, a negative mammogram must not discourage biopsy of a clinically suspicious lesion. Electronically Signed By: Damon Reno acr/penrad:12/25/2020 13:43:20 letter sent: Normal Exam ACR BI-RADS Category 2: Benign Finding(s) 3342F
== END ==
PROVIDERS: PCP Nurse Practitioner Family; Referring Provider Nurse Practitioner Family; Visit Provider Nurse Practitioner Family
DX: Z12.31 Encounter for screening mammogram for malignant neoplasm of breast (principal); Z80.3 Family history of malignant neoplasm of breast
CPT/HCPCS: 77063; 77067

== ENCOUNTER → 2021-01-04 08:12 | Outpatient (CLI) | payer MEDICARE, OTHER, SELFPAY ==
[2021-01-04 09:20] LABS: Hematocrit 41.1 % (36-46); Hemoglobin 13.8 g/dL (12.0-16.0); Mean Corpuscular HGB Conc 33.6 % (30-36); Mean Corpuscular Volume 89.5 fL (80-100); Platelet Count 254 X10^3/uL (150-400); Red Cell Distribution Width 13.4 % (11.6-14.8); White Blood Cell Count 4.3 X10^3/uL (4.5-11.0)
[2021-01-04 09:29] LABS: Alanine Aminotransferase 26 IU/L (<35); Albumin 4.5 g/dL (3.5-5.0); Albumin Globulin Ratio 1.7 (1.0-2.8); Alkaline Phosphatase 69 U/L (38-126); Aspartate Aminotransferase 29 IU/L (14-36); BUN Creatinine Ratio 22.6 (6-22); Bilirubin Total 0.7 mg/dL (0.2-1.3); Blood Urea Nitrogen 14 mg/dL (7-17); Calcium 9.7 mg/dL (8.4-10.2); Carbon Dioxide 27 mmol/L (22-32); Chloride 104 mmol/L (98-107); Estimated Glomerular Filt Rate > 60.0 mL/min (>60); Globulin 2.7 g/dL (1.7-4.1); Glucose 102 mg/dL (80-110); HEMOLYSIS 16 (0-50); Potassium 4.5 mmol/L (3.4-5.1); Sodium 138 mmol/L (137-145); Total Protein 7.2 g/dL (6.3-8.2)
[2021-01-04 09:58] LABS: Thyroid Stimulating Hormone 0.526 uIU/mL (0.47-4.68)
== END ==
PROVIDERS: PCP Nurse Practitioner Family; Referring Provider Nurse Practitioner Family; Visit Provider Nurse Practitioner Family
DX: Z00.00 Encounter for general adult medical examination without abnormal findings (principal); E03.9 Hypothyroidism, unspecified
CPT/HCPCS: 36415; 80053; 84439; 84443; 85027

== ENCOUNTER → 2021-11-13 09:56 | Outpatient (CLI) | payer MEDICARE, OTHER, SELFPAY ==
[2021-11-13 13:00] LABS: Alanine Aminotransferase 19 IU/L (<35); Albumin 4.5 g/dL (3.5-5.0); Albumin Globulin Ratio 1.5 (1.0-2.8); Alkaline Phosphatase 69 U/L (38-126); Aspartate Aminotransferase 22 IU/L (14-36); Bilirubin Total 0.5 mg/dL (0.2-1.3); Blood Urea Nitrogen 16 mg/dL (7-17); Calcium 9.7 mg/dL (8.4-10.2); Carbon Dioxide 29 mmol/L (22-32); Chloride 101 mmol/L (98-107); Estimated Glomerular Filt Rate > 60 mL/min (>60); Glucose 84 mg/dL (80-110); HEMOLYSIS < 15 (0-50); Potassium 4.5 mmol/L (3.4-5.1); Sodium 138 mmol/L (137-145); Total Protein 7.5 g/dL (6.3-8.2)
[2021-11-13 13:09] LABS: Free T4, Direct Thyroxine 1.59 ng/dL (0.78-2.19)
[2021-11-13 13:23] LABS: Thyroid Stimulating Hormone 0.085 uIU/mL (0.47-4.68)
== END ==
PROVIDERS: PCP Family Medicine; Referring Provider Family Medicine; Visit Provider Family Medicine
DX: E03.9 Hypothyroidism, unspecified (principal); Z01.89 Encounter for other specified special examinations
CPT/HCPCS: 36415; 80053; 84439; 84443

== ENCOUNTER → 2021-12-30 10:52 | Outpatient (CLI) | payer MEDICARE, OTHER, SELFPAY ==
--- NOTE | 2021-12-30 | DI.MG.S_ITS ---
BILATERAL DIGITAL SCREENING MAMMOGRAM 3D/2D WITH CAD: 12/30/2021 CLINICAL: Routine screening. Family history of breast cancer. Comparison is made to exams dated: 12/25/2020 mammogram, 12/18/2019 mammogram, and 12/14/2018 mammogram - [facility]. Both breasts are heterogeneously dense, which may obscure small masses (category c / 51-75% glandular tissue). Current study was also evaluated with a Computer Aided Detection (CAD) system. There are benign calcifications in the right breast. No significant masses, calcifications, or other findings are seen in either breast. There has been no significant interval change. IMPRESSION: BENIGN There is no mammographic evidence of malignancy. A 1 year screening mammogram is recommended. Based on the Tyrer Cuzick model (a risk assessment model) the patient's lifetime risk is 9.1% and her 10 year risk is 8.2%. According to the ACR, ACS, and NCCN guidelines, an annual breast MRI exam along with mammogram is recommended if the patient's lifetime risk is 20% or greater. This exam was interpreted at Station ID: [id number]. NOTE: For mammograms, a report in lay terms will be sent to the patient. Approximately 15% of breast malignancies will not be visualized mammographically. In the management of a palpable breast mass, a negative mammogram must not discourage biopsy of a clinically suspicious lesion. Electronically Signed By: Willi lion/sophia:12/30/2021 13:53:12 letter sent: Normal Exam ACR BI-RADS Category 2: Benign Finding(s) 3342F
== END ==
PROVIDERS: PCP Family Medicine; Referring Provider Family Medicine; Visit Provider Family Medicine
DX: Z12.31 Encounter for screening mammogram for malignant neoplasm of breast (principal); Z80.3 Family history of malignant neoplasm of breast
CPT/HCPCS: 77063; 77067

== ENCOUNTER → 2022-01-22 09:24 | Outpatient (CLI) | payer MEDICARE, OTHER, SELFPAY ==
[2022-01-22 11:03] LABS: COVID19 -Nasal RAPID Negative (Negative)
== END ==
PROVIDERS: PCP Family Medicine; Visit Provider Surgery
DX: Z20.822 Contact with and (suspected) exposure to COVID-19 (principal); Z01.812 Encounter for preprocedural laboratory examination
CPT/HCPCS: 87635; C9803

== ENCOUNTER → 2022-01-23 11:58 | Day surgery (SDC) | payer MEDICARE, OTHER, SELFPAY ==
--- NOTE | 2022-01-23 | PATH_ITS ---
[facility] Accession Number: [id number] . 01 Material submitted: . PART A: cecum - CECAL POLYP PART B: colon - ASCENDING COLON POLYP PART C: colon - TRANSVERSE COLON POLYP . 01 Diagnosis: A. Cecal Polyp, Biopsy: Sessile serrated adenoma. . B. Ascending Colon Polyp, Biopsy: Tubular adenoma. . C. Transverse Colon Polyp, Biopsy: Colonic mucosa with prominent benign lymphoid aggregate. Negative for serrated lesion, dysplasia or malignancy. MRV 01/27/2022 1405 Local . 01 Electronically signed: . Chris Bauman MD, PhD, Pathologist NPI- [id number] . 01 Gross description: . Part A: CECAL POLYP: Received in formalin are multiple fragment(s) of torres, soft tissue measuring 1.3 x 0.5 x 0.1 cm in aggregate submitted entirely in 1 cassette(s) Part B: ASCENDING COLON POLYP: Received in formalin is 1 fragment(s) of torres, soft tissue measuring 0.2 x 0.2 x 0.2 cm submitted entirely in 1 cassette(s) Part C: TRANSVERSE COLON POLYP: Received in formalin are 2 fragment(s) of torres, soft tissue measuring 0.7 x 0.2 x 0.1 cm to 0.1 x 0.1 x 0.1 cm submitted entirely in 1 cassette(s) /CPE 01/24/2022 1009 Local . 01 Pathologist provided ICD-10: D12.0, D12.2 . 01 CPT . 408477, 734747, [id number] Specimen Comment: A courtesy copy of this report has been sent to [facility] Pathology Performed at: 01 [facility] [address] [place] [address] [address] [facility], [place], [place] [id number] MD Mason Stephen MD Phone: [phone]
[2022-01-23 12:38] VITALS: BP 145/87; PULSE 78; RESP 12; TEMP 36.8; O2SAT 98; BMI 25.7
[2022-01-23] MEDS: LACTATED RINGERS 1,000 ML 100 ML IV (12:50)
--- NOTE | 2022-01-23 13:21 | PM.HP.1 ---
History of Present Illness History of Present Illness [place] [facility] [place]: Ms. Romero presents today for a screening Colonoscopy her last colonoscopy was done by Dr. Oscar at [facility] in 2011 and was normal. No polyps were seen. She tolerated the procedure well and has no questions today. There is no family history of colon cancer. No alarming symptoms such as bleeding or diarrhea constipation. She has regular bowel movements and eats a vegetarian diet. She has never had abdominal surgery. 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) Dysphagia (2018) Eustachian tube dysfunction GERD (gastroesophageal reflux disease) (2018) Ingrown toenail of right foot Onychomycosis Osteopenia (03/2013) Rash and nonspecific skin eruption Family & Social History Family History Sister Age: 72 History of ovarian cancer Mother Hypertension Diabetes mellitus Father Cancer CVA (cerebral vascular accident) Social History: household members none Tobacco & Substance use: Smoking Status Former smoker alcohol intake current alcohol intake frequency 0-2 drinks per day Substance Use Type does not use Meds Home Medications and Allergies Home Medications Medication Instructions Recorded Confirmed Type epinephrine 0.3 mg/0.3 mL 0.3 ml SUBCUT ONCE #1 ea 10/27/17 11/24/21 Rx injection, auto-injector famotidine 10 mg tablet (Pepcid AC) 10 mg PO BID #90 tabs 06/05/19 11/24/21 Rx citalopram 20 mg tablet 20 mg PO DAILY #90 tabs 06/23/21 01/23/22 Rx lisinopril 20 mg tablet 20 mg PO DAILY #90 tabs 06/23/21 11/24/21 Rx levothyroxine 112 mcg tablet 112 mcg PO DAILY #90 tabs 11/11/21 11/24/21 Rx pravastatin 20 mg tablet 20 mg PO BEDTIME #90 tabs 11/13/21 11/24/21 Rx Allergies Allergy/AdvReac Type Severity Reaction Status Date / Time venom-honey bee Allergy Severe SWELLING Verified 01/23/22 12:26 [BEE VENOM (HONEY BEE)] IN THROAT AND FACE, ITCHING IN EARS melon [MELON] Allergy Intermediate ITCHing Verified 01/23/22 12:26 Sulfa (Sulfonamide Allergy Mild BILATERAL Verified 01/23/22 12:26 Antibiotics) HAND [SULFA (SULFONAMIDE SWELLING ANTIBIOTICS)] CHAYOTE (VEGETABLE) Allergy Severe MAKES SKIN Uncoded 01/23/22 12:26 PEEL Exam Vital Signs (past 8 hours): - 01/23/22 12:38 Temperature 98.2 F Pulse Rate 78 Respiratory Rate 12 Blood Pressure 145/87 H Pulse Oximetry 98 Oxygen Delivery Method Room Air Oxygen Delivery Method Room Air Const General: cooperative, healthy appearing and comfortable Resp Effort & Inspection: normal respiratory effort and able to speak in complete sentences Cardio Pulses: radial pulses present GI Palpation: soft and No tender Assessment & Plan Assessment and plan (1) Screen for colon cancer: Status: Acute Assessment & Plan narrative: I discussed risks benefits and alternatives of a screening colonoscopy including but not limited to perforation of the colon and needing emergency surgery. She understands the risk of this is very low and also the benefit of screening for colon cancer she would like to proceed. Time Spent With Patient Critical Care time: I spent a total of [] minutes of critical care time on this patient's care today; this time is exclusive of procedural time.
[2022-01-23 14:33] VITALS: BP 142/75; PULSE 64; RESP 16; TEMP 36.4; O2SAT 97
[2022-01-23 14:38] VITALS: BP 142/75; PULSE 67; RESP 16; O2SAT 99
--- NOTE | 2022-01-23 14:41 | PM.OP.COLON ---
Procedure & Clinicians Study performed: screening colonoscopy and biopsy Same procedure as scheduled: Yes Surgeon: Kathy Puentes Procedure Notes Procedure in detail: Patient was taken to the endoscopy suite and placed in left lateral decubitus position. A time-out was performed. The monitored anesthetic care was done. A digital rectal exam was performed the colonoscope was introduced into the anus and advanced through to the cecum. Prep was good. Photograph of the appendiceal orifice was obtained. There was an under 1 cm cecal polyp which was biopsied. It was removed with biopsy forceps in several bites, photographs were taken, sent for pathology. The withdrawal time in total took 38 minutes. A 2nd ascending colon polyp was biopsied with biopsy forceps upon withdrawal. And a transverse colon polyp was also biopsied. Each of these were small. Upon withdrawal as well there were several left-sided and sigmoid diverticula within normal limits. Specimen(s): other (1. Cecal polyp 2. Ascending colon polyp 3. Transverse colon polyp)
[2022-01-23 14:44] VITALS: BP 151/79; PULSE 61; RESP 18; O2SAT 100
[2022-01-23 14:50] VITALS: BP 153/76; PULSE 59; RESP 16; TEMP 36.5; O2SAT 98
[2022-01-23 14:57] VITALS: BP 156/81; PULSE 60; RESP 18; TEMP 36.5; O2SAT 97
== END | disposition home or self-care (01) ==
PROVIDERS: PCP Family Medicine; Referring Provider Surgery; Visit Provider Surgery
PROC: 0DJD8ZZ Inspection of Lower Intestinal Tract, Via Natural or Artificial Opening Endoscopic (ICD-10-PCS; CPT 45378; principal; 2022-01-23 13:15)
DX: Z12.11 Encounter for screening for malignant neoplasm of colon (principal); K21.9 Gastro-esophageal reflux disease without esophagitis; K57.30 Diverticulosis of large intestine without perforation or abscess without bleeding; D12.2 Benign neoplasm of ascending colon; D12.0 Benign neoplasm of cecum; D12.3 Benign neoplasm of transverse colon
CPT/HCPCS: 45380; J2704

== ENCOUNTER → 2022-02-21 09:09 | Outpatient (CLI) | payer MEDICARE, OTHER, SELFPAY ==
[2022-02-21 10:42] LABS: Cholesterol 242 mg/dL (140-199); HDL Cholesterol 46 mg/dL (40-60); LDL Cholesterol Calculated 167 mg/dL (<100); Triglycerides 145 mg/dL (35-150)
[2022-02-21 13:46] LABS: Creatinine Urine Random 181.4 mg/dL
[2022-02-21 13:58] LABS: Microalbumi Creatinin Ratio Ur 4.9 ug/mg CR (<30); Microalbumin Urine Random 0.9 mg/dL (0-1.6)
== END ==
PROVIDERS: PCP Family Medicine; Referring Provider Family Medicine; Visit Provider Family Medicine
DX: I10 Essential (primary) hypertension (principal)
CPT/HCPCS: 36415; 80061; 82043; 82570

== ENCOUNTER → 2022-07-28 14:43 | Outpatient (CLI) | payer MEDICARE, OTHER, SELFPAY ==
[2022-07-28 16:00] LABS: Add Manual Diff / Slide Review NO; Basophils Absolute Auto 0 /uL (0-100); Basophils Percent Auto 0.8 % (0-2); Eosinophils Absolute Auto 200 /uL (0-450); Eosinophils Percent Auto 4.4 % (2-4); Hematocrit 39.8 % (36-46); Hemoglobin 13.6 g/dL (12.0-16.0); Lymphocytes Absolute Auto 1800 /uL (1100-4500); Lymphocytes Percent Auto 34.7 % (25-40); Mean Corpuscular HGB Conc 34.1 % (30-36); Mean Corpuscular Hemoglobin 30.6 PG (26-34); Mean Corpuscular Volume 89.5 fL (80-100); Monocytes Absolute Auto 500 /uL (0-900); Monocytes Percent Auto 9.9 % (3-14); Neutrophils Absolute Auto 2600 /uL (1500-7000); Neutrophils Percent Auto 50.2 % (50-75); Platelet Count 252 X10^3/uL (150-400); Red Blood Cell Count 4.45 X10^6/uL (4.0-5.2); White Blood Cell Count 5.2 X10^3/uL (4.5-11.0)
[2022-07-28 16:16] LABS: Alanine Aminotransferase 20 IU/L (<35); Albumin 4.5 g/dL (3.5-5.0); Albumin Globulin Ratio 1.7 (1.0-2.8); Alkaline Phosphatase 70 U/L (38-126); Aspartate Aminotransferase 23 IU/L (14-36); BUN Creatinine Ratio 30.5 (6-22); Bilirubin Total 0.6 mg/dL (0.2-1.3); Blood Urea Nitrogen 18 mg/dL (7-17); Calcium 9.6 mg/dL (8.4-10.2); Carbon Dioxide 25 mmol/L (22-32); Chloride 100 mmol/L (98-107); Estimated Glomerular Filt Rate > 60 mL/min (>60); Globulin 2.7 g/dL (1.7-4.1); Glucose 83 mg/dL (80-110); HEMOLYSIS < 15 (0-50); Potassium 4.3 mmol/L (3.4-5.1); Sodium 136 mmol/L (137-145); Total Protein 7.2 g/dL (6.3-8.2)
[2022-07-28 16:35] LABS: Erythrocyte Sedimentation Rate 7 MM/HR (0-20)
[2022-07-28 16:46] LABS: TSH w/ Reflex to FT4 0.17 uIU/mL (0.47-4.68)
[2022-07-28 17:31] LABS: Free T4, Direct Thyroxine 1.58 ng/dL (0.78-2.19)
== END ==
PROVIDERS: PCP Family Medicine; Referring Provider Family Medicine; Visit Provider Family Medicine
DX: E03.9 Hypothyroidism, unspecified (principal); R21 Rash and other nonspecific skin eruption
CPT/HCPCS: 36415; 80053; 84439; 84443; 85025; 85651

== ENCOUNTER → 2022-11-10 10:28 | Outpatient (CLI) | payer MEDICARE, OTHER, SELFPAY ==
[2022-11-10 11:57] LABS: Add Manual Diff / Slide Review NO; Basophils Absolute Auto 100 /uL (0-100); Basophils Percent Auto 1.2 % (0-2); Eosinophils Absolute Auto 300 /uL (0-450); Eosinophils Percent Auto 5.7 % (2-4); Hematocrit 40.6 % (36-46); Hemoglobin 13.7 g/dL (12.0-16.0); Lymphocytes Absolute Auto 1400 /uL (1100-4500); Lymphocytes Percent Auto 32.2 % (25-40); Mean Corpuscular HGB Conc 33.8 % (30-36); Mean Corpuscular Hemoglobin 30.1 PG (26-34); Mean Corpuscular Volume 88.9 fL (80-100); Monocytes Absolute Auto 500 /uL (0-900); Monocytes Percent Auto 11.3 % (3-14); Neutrophils Absolute Auto 2200 /uL (1500-7000); Neutrophils Percent Auto 49.6 % (50-75); Platelet Count 269 X10^3/uL (150-400); Red Blood Cell Count 4.56 X10^6/uL (4.0-5.2); Red Cell Distribution Width 13.4 % (11.6-14.8); White Blood Cell Count 4.5 X10^3/uL (4.5-11.0)
[2022-11-10 12:03] LABS: Alanine Aminotransferase 17 IU/L (<35); Albumin 4.4 g/dL (3.5-5.0); Albumin Globulin Ratio 1.4 (1.0-2.8); Alkaline Phosphatase 65 U/L (38-126); Aspartate Aminotransferase 23 IU/L (14-36); Bilirubin Total 0.4 mg/dL (0.2-1.3); Blood Urea Nitrogen 14 mg/dL (7-17); Calcium 9.6 mg/dL (8.4-10.2); Carbon Dioxide 25 mmol/L (22-32); Chloride 101 mmol/L (98-107); Estimated Glomerular Filt Rate > 60 mL/min (>60); Globulin 3.1 g/dL (1.7-4.1); Glucose 89 mg/dL (80-110); HEMOLYSIS < 15 (0-50); Potassium 4.3 mmol/L (3.4-5.1); Sodium 136 mmol/L (137-145); Total Protein 7.5 g/dL (6.3-8.2)
[2022-11-12 15:22] LABS: Glucose-6-Phosphate Dehydrogen 329 (127-427)
== END ==
PROVIDERS: PCP Family Medicine; Referring Provider Dermatology; Visit Provider Dermatology
DX: L92.0 Granuloma annulare (principal)
CPT/HCPCS: 36415; 80053; 82955; 85025; 85041

== ENCOUNTER → 2023-01-05 08:15 | Outpatient (CLI) | payer MEDICARE, OTHER, SELFPAY ==
--- NOTE | 2023-01-05 08:17 | DI.MG.S_ITS ---
BILATERAL DIGITAL SCREENING MAMMOGRAM 3D/2D WITH CAD: 01/05/2023 CLINICAL: Routine screening. Family history of breast cancer. Comparison is made to exams dated: 12/30/2021 mammogram, 12/25/2020 mammogram, and 12/18/2019 mammogram - [facility]. Both breasts are heterogeneously dense, which may obscure small masses (category c / 51-75% glandular tissue). Current study was also evaluated with a Computer Aided Detection (CAD) system. There are benign calcifications in both breasts. No significant masses, calcifications, or other findings are seen in either breast. There has been no significant interval change. IMPRESSION: BENIGN There is no mammographic evidence of malignancy. A 1 year screening mammogram is recommended. Based on the Tyrer Cuzick model (a risk assessment model) the patient's lifetime risk is 8.4% and her 10 year risk is 8.4%. According to the ACR, ACS, and NCCN guidelines, an annual breast MRI exam along with mammogram is recommended if the patient's lifetime risk is 20% or greater. This exam was interpreted at Station ID: [id number]. NOTE: For mammograms, a report in lay terms will be sent to the patient. Approximately 15% of breast malignancies will not be visualized mammographically. In the management of a palpable breast mass, a negative mammogram must not discourage biopsy of a clinically suspicious lesion. Electronically Signed By: Damon borges/sophia:01/05/2023 13:07:55 letter sent: Normal Exam ACR BI-RADS Category 2: Benign Finding(s) 3342F
== END ==
PROVIDERS: PCP Family Medicine; Referring Provider Family Medicine; Visit Provider Family Medicine
DX: Z12.31 Encounter for screening mammogram for malignant neoplasm of breast (principal); Z80.3 Family history of malignant neoplasm of breast
CPT/HCPCS: 77063; 77067

== ENCOUNTER → 2023-01-22 11:09 | Outpatient (CLI) | payer MEDICARE, OTHER, SELFPAY | PROVIDERS: PCP Family Medicine; Referring Provider Family Medicine; Visit Provider Family Medicine | DX: Z79.899 Other long term (current) drug therapy (principal) | CPT/HCPCS: 93005; 93010 ==

== ENCOUNTER → 2023-03-06 09:42 | Outpatient (CLI) | payer MEDICARE, OTHER, SELFPAY ==
[2023-03-06 11:27] LABS: Cholesterol 231 mg/dL (140-199); HDL Cholesterol 46 mg/dL (40-60); LDL Cholesterol Calculated 154 mg/dL (<100); Triglycerides 155 mg/dL (35-150)
== END ==
PROVIDERS: PCP Family Medicine; Referring Provider Family Medicine; Visit Provider Family Medicine
DX: E78.2 Mixed hyperlipidemia (principal)
CPT/HCPCS: 36415; 80061; 86140

== ENCOUNTER → 2023-09-16 07:27 | Outpatient (CLI) | payer MEDICARE, OTHER, SELFPAY ==
[2023-09-16 09:33] LABS: Free T3, Triiodothyronine Free 3.31 pg/mL (2.77-5.27); Free T4, Direct Thyroxine 1.42 ng/dL (0.78-2.19)
[2023-09-16 09:47] LABS: TSH w/ Reflex to FT4 0.65 uIU/mL (0.47-4.68)
== END ==
PROVIDERS: PCP Family Medicine; Referring Provider Family Medicine; Visit Provider Family Medicine
DX: E03.9 Hypothyroidism, unspecified (principal)
CPT/HCPCS: 36415; 84439; 84443; 84481

== ENCOUNTER → 2023-12-14 10:17 | Outpatient (CLI) | payer MEDICARE, OTHER, SELFPAY ==
--- NOTE | 2023-12-14 10:18 | DI.US.S_ITS ---
PROCEDURE: US EXTREMITY NONVASC LOWER RT INDICATIONS: Bhatt's Cyst TECHNIQUE: Real-time scanning was performed of the right knee, with image documentation. COMPARISON: None. FINDINGS: Focused ultrasound examination of posterior lateral aspect of right knee shows a 2.3 x 0.6 x 1.1 cm heterogeneously hypoechoic structure in deep soft tissue and show no internal vascularity. Low level internal echo is seen. IMPRESSION: No simple appearing popliteal cyst is seen. Ill-defined 2.3 x 0.6 x 1.1 cm heterogeneously hypoechoic structure in deep soft tissue along posterior lateral aspect of right knee and is of indeterminate etiology. Consider MRI of knee without and with contrast for further evaluation of this region. Dictated by: Eugenio Toney M.D. on 12/14/2023 at 13:59 Approved by: Eugenio Toney M.D. on 12/14/2023 at 14:18
== END ==
PROVIDERS: PCP Family Medicine; Referring Provider Family Medicine; Visit Provider Family Medicine
DX: M71.21 Synovial cyst of popliteal space [Baker], right knee (principal)
CPT/HCPCS: 76882

== ENCOUNTER → 2023-12-24 15:46 | Outpatient (CLI) | payer MEDICARE, OTHER, SELFPAY ==
--- NOTE | 2023-12-24 15:47 | DI.MRI.S_ITS ---
PROCEDURE: MR KNEE RT WO/W CON INDICATIONS: heterogeneously hypoechoic structure in deep soft tissue TECHNIQUE: Noncontrast sagittal PD fast spin echo and T2 fast spin echo with fat saturation, sagittal 3-D FLASH with fat saturation; coronal T1 spin echo and PD fast spin echo with fat saturation, and axial T1 spin echo and PD fast spin echo with fat saturation through the knee. Post-contrast axial, coronal, and sagittal T1 spin echo with fat saturation through the knee. COMPARISON: [facility], US, US EXTREMITY NONVASC LOWER RT, 12/14/2023, 10:37. FINDINGS: Image quality: Excellent. Anterior cruciate ligament: Intact. Posterior cruciate ligament: Intact. Medial collateral ligament: Mild edema surrounding the midportion of the medial collateral ligament is compatible with low-grade sprain. Lateral collateral ligament: Intact. Medial meniscus: Mild flattening and contour irregularity in the body and posterior horn of the medial meniscus. A small inferiorly displaced flap tear is seen at the meniscal body extending into the medial tibial gutter. Lateral meniscus: There is degenerative tearing of the anterior horn and body of the lateral meniscus extending to the femoral articular surface. Medial and lateral tendons: The semimembranosus tendon insertions appear intact. Visualized portions of the pes anserinus tendons appear normal. The popliteus tendon is intact. Iliotibial band appears normal. Anterior structures: The quadriceps and patellar tendons appear intact. There is remodeling and flattening of the lateral lateral femoral trochlea with lateral patellar tilting and lateral patellar subluxation. No edema in the infrapatellar fat pad. Bones and cartilage: No bone marrow contusions or fractures. Small ossifications lateral to the lateral patellar facet may be secondary to remote prior trauma versus congenital variation. Medial femorotibial cartilage: Partial-thickness cartilage irregularity in the weight-bearing portion of the medial compartment with moderate marginal osteophyte formation. Lateral femorotibial cartilage: Multifocal cartilage irregularity with small areas of high-grade cartilage loss. In the far posterior portion of the lateral femoral condyle there is focal full-thickness cartilage loss and subchondral osteophyte formation. Bulky marginal osteophytes are present. Patellofemoral cartilage: Large area of full-thickness cartilage loss in the lateral femoral trochlea and lateral patellar facet with subchondral cystic changes and subchondral edema as well as remodeling of the articular surfaces. Moderate tricompartmental marginal osteophytes. Soft tissues: Moderate joint effusion. Trace medial popliteal cyst. Nonspecific prepatellar subcutaneous soft tissue edema. The visualized musculature is normal in bulk. No solid enhancing soft tissue mass. IMPRESSION: 1. No solid enhancing soft tissue mass. Previously seen hypoechoic structure adjacent to the knee on the prior ultrasound is of uncertain etiology and may have represented focal loculated joint fluid or possibly a prominent area of infrapatellar fat. 2. Full-thickness cartilage loss throughout the lateral portion of the patellofemoral compartment with subchondral cystic changes and edema as well as remodeling of the articular surfaces. 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 3. Degenerative tearing of the anterior horn and body of the lateral meniscus with a component extending to the femoral articular surface. 4. Small foot displaced flap tear at the medial meniscal body extending into the medial tibial gutter superimposed on meniscal degeneration. 5. Low-grade sprain of the mid medial collateral ligament. 6. Moderate joint effusion. Approved by: Doug Sheehan M.D. on 12/24/2023 at 20:59
== END ==
LOC: MRI 15:46
PROVIDERS: PCP Family Medicine; Referring Provider Family Medicine; Visit Provider Family Medicine
DX: M94.261 Chondromalacia, right knee (principal); M71.21 Synovial cyst of popliteal space [Baker], right knee; M25.461 Effusion, right knee; M23.241 Derangement of anterior horn of lateral meniscus due to old tear or injury, right knee; M23.231 Derangement of other medial meniscus due to old tear or injury, right knee; S83.411A Sprain of medial collateral ligament of right knee, initial encounter; M25.561 Pain in right knee
CPT/HCPCS: 73723; A9579

== ENCOUNTER → 2024-01-12 15:46 | Outpatient (CLI) | payer MEDICARE, OTHER, SELFPAY ==
--- NOTE | 2024-01-12 15:47 | DI.MG.S_ITS ---
BILATERAL DIGITAL SCREENING MAMMOGRAM 3D/2D WITH CAD: 01/12/2024 CLINICAL: Routine screening. Family history of breast cancer. Comparison is made to exams dated: 01/05/2023 mammogram, 12/30/2021 mammogram, and 12/25/2020 mammogram - [facility]. The breasts are heterogeneously dense, which may obscure small masses (category c / 51-75% glandular tissue). Current study was also evaluated with a Computer Aided Detection (CAD) system. There are benign calcifications in both breasts. No significant masses, calcifications, or other findings are seen in either breast. There has been no significant interval change. IMPRESSION: BENIGN There is no mammographic evidence of malignancy. A 1 year screening mammogram is recommended. Based on the Tyrer Cuzick model (a risk assessment model) the patient's lifetime risk is 7.7% and her 10 year risk is 0.0%. According to the ACR, ACS, and NCCN guidelines, an annual breast MRI exam along with mammogram is recommended if the patient's lifetime risk is 20% or greater. This exam was interpreted at Station ID: [id number]. NOTE: For mammograms, a report in lay terms will be sent to the patient. Approximately 15% of breast malignancies will not be visualized mammographically. In the management of a palpable breast mass, a negative mammogram must not discourage biopsy of a clinically suspicious lesion. Electronically Signed By: Chad zarate/sophia:01/13/2024 09:21:45 letter sent: Normal Exam ACR BI-RADS Category 2: Benign
== END ==
PROVIDERS: PCP Family Medicine; Referring Provider Family Medicine; Visit Provider Family Medicine
DX: Z12.31 Encounter for screening mammogram for malignant neoplasm of breast (principal); Z80.3 Family history of malignant neoplasm of breast; R92.333 Mammographic heterogeneous density, bilateral breasts
CPT/HCPCS: 77063; 77067

== ENCOUNTER → 2024-04-10 09:56 | Outpatient (CLI) | payer MEDICARE, OTHER, SELFPAY ==
[2024-04-10 10:38] LABS: Add Manual Diff / Slide Review NO; Basophils Absolute Auto 100 /uL (0-100); Basophils Percent Auto 1.5 % (0-2); Eosinophils Absolute Auto 300 /uL (0-450); Eosinophils Percent Auto 5.6 % (2-4); Hematocrit 44.4 % (36-46); Hemoglobin 14.9 g/dL (12.0-16.0); Lymphocytes Absolute Auto 1800 /uL (1100-4500); Lymphocytes Percent Auto 37.9 % (25-40); Mean Corpuscular HGB Conc 33.5 % (30-36); Mean Corpuscular Volume 89.5 fL (80-100); Monocytes Absolute Auto 500 /uL (0-900); Monocytes Percent Auto 10.5 % (3-14); Neutrophils Absolute Auto 2100 /uL (1500-7000); Neutrophils Percent Auto 44.5 % (50-75); Platelet Count 305 X10^3/uL (150-400); Red Blood Cell Count 4.96 X10^6/uL (4.0-5.2); Red Cell Distribution Width 13.3 % (11.6-14.8); White Blood Cell Count 4.7 X10^3/uL (4.5-11.0)
[2024-04-10 11:01] LABS: Alanine Aminotransferase 18 IU/L (<35); Albumin 4.6 g/dL (3.5-5.0); Albumin Globulin Ratio 1.6 (1.0-2.8); Alkaline Phosphatase 68 U/L (38-126); Aspartate Aminotransferase 24 IU/L (14-36); BUN Creatinine Ratio 25.7 (6-22); Bilirubin Total 0.7 mg/dL (0.2-1.3); Blood Urea Nitrogen 18 mg/dL (7-17); Calcium 9.9 mg/dL (8.4-10.2); Carbon Dioxide 25 mmol/L (22-32); Chloride 103 mmol/L (98-107); Cholesterol 215 mg/dL (140-199); Estimated Glomerular Filt Rate > 60 mL/min (>60); Globulin 2.9 g/dL (1.7-4.1); Glucose 99 mg/dL (80-110); HDL Cholesterol 60 mg/dL (40-60); HEMOLYSIS < 15 (0-50); LDL Cholesterol Calculated 128 mg/dL (<100); Potassium 4.4 mmol/L (3.4-5.1); Sodium 137 mmol/L (137-145); Total Protein 7.5 g/dL (6.3-8.2); Triglycerides 134 mg/dL (35-150)
[2024-04-10 11:18] LABS: Vitamin D 25 Hydroxy (D3) 29.1 ng/mL (30.0-100.0)
[2024-04-10 11:29] LABS: TSH w/ Reflex to FT4 0.25 uIU/mL (0.47-4.68)
[2024-04-10 12:25] LABS: Free T4, Direct Thyroxine 1.41 ng/dL (0.78-2.19)
== END ==
PROVIDERS: PCP Family Medicine; Referring Provider Family Medicine; Visit Provider Family Medicine
DX: L92.0 Granuloma annulare (principal); E03.9 Hypothyroidism, unspecified; E78.2 Mixed hyperlipidemia; I10 Essential (primary) hypertension; F32.9 Major depressive disorder, single episode, unspecified; G47.00 Insomnia, unspecified
CPT/HCPCS: 36415; 80053; 80061; 82306; 84439; 84443; 85025

== ENCOUNTER → 2025-02-28 11:04 | Outpatient (CLI) | payer MEDICARE, OTHER, SELFPAY ==
--- NOTE | 2025-02-28 11:05 | DI.MG.S_ITS ---
MM screening mammo BI: 02/28/2025. BI-RADS: 1 CLINICAL: 79-year old female for bilateral screening mammogram. Tyrer-Cuzick lifetime risk of 3.5%. No personal or first-degree family history of breast cancer. History of ovarian cancer in one first-degree relative. PRIOR EXAMS 01/12/2024, 01/05/2023, 12/30/2021, 12/25/2020. MAMMOGRAPHY TECHNIQUE: 2D and 3D (tomosynthesis) digital mammographic views obtained, with additional images as needed for full coverage. Current study was also evaluated with a Computer Aided Detection (CAD) system. DENSITY C. The breasts are heterogeneously dense, which may obscure small masses. MAMMOGRAPHY FINDINGS Bilateral: No suspicious mass, asymmetry, microcalcification, or other abnormality seen. IMPRESSION: * No evidence of malignancy. RECOMMENDATIONS Bilateral * Annual screening mammography. OVERALL ASSESSMENT CATEGORY BI-RADS-1: Negative. The [employer] recommends annual screening mammography beginning at age 40 for women with average risk of breast cancer. ELECTRONICALLY SIGNED: Tri Oh M.D. on 02/28/2025 at 12:38:36 PM PT Interpreting Station ID: [id number]
== END ==
LOC: MAMMO 11:04
PROVIDERS: PCP Family Medicine; Referring Provider Family Medicine; Visit Provider Family Medicine
DX: Z12.31 Encounter for screening mammogram for malignant neoplasm of breast (principal); R92.333 Mammographic heterogeneous density, bilateral breasts; Z98.82 Breast implant status
CPT/HCPCS: 77063; 77067